=== PATIENT | male | born 1960 | race Caucasian/White ===

== ENCOUNTER 2017-05-26 05:17 | Observation (INO) | payer BC ==
[2017-05-26] MEDS ORDERED: ROPIVACAINE 0.5 % 30 ML VIAL (06:42)
[2017-05-26] MEDS: ROPIVACAINE 0.5 % 30 ML VIAL (06:45)
[2017-05-26] MEDS: POLYMYXIN/BACITRACIN 1L IRRIG (06:45)
[2017-05-26] MEDS ORDERED: SUCCINYLCHOLINE CHLORIDE 100 MG/5 ML SYG IV (06:58)
[2017-05-26] MEDS ORDERED: MIDAZOLAM 1 MG/ML 2 ML INJ ×2 (06:58→07:05)
[2017-05-26] MEDS ORDERED: LIDOCAINE 2% (SDV) 5 ML INJ (06:58)
[2017-05-26] MEDS ORDERED: ROCURONIUM 50 MG INJ ×3 (06:58→09:53)
[2017-05-26] MEDS ORDERED: PROPOFOL 20 ML (06:58)
[2017-05-26] MEDS ORDERED: ONDANSETRON 4 MG INJ (07:32)
[2017-05-26] MEDS ORDERED: METOCLOPRAMIDE 10 MG INJ (07:32)
[2017-05-26] MEDS ORDERED: DEXAMETHASONE 4 MG/ML 1 ML INJ (07:32)
[2017-05-26] MEDS ORDERED: FAMOTIDINE 20 MG INJ (07:32)
[2017-05-26] MEDS ORDERED: CEFAZOLIN 1 GM INJ ×2 (07:35→10:48)
[2017-05-26] MEDS ORDERED: HYDROmorphONE 2 MG/ML SYG (10:15)
[2017-05-26] MEDS ORDERED: hydrALAzine 20 MG INJ (10:18)
[2017-05-26] MEDS: POVIDONE IODINE 10% 28.4 GM OINT (10:20)
[2017-05-26] MEDS ORDERED: SUGAMMADEX SODIUM 200 MG/2 ML VIAL IV (11:30)
[2017-05-26] MEDS ORDERED: HYDROmorphONE 0.2 MG/ML PCA (12:26)
[2017-05-26] MEDS ORDERED: FENTAnyl 50 MCG/ML VIAL IV ×3 (12:30)
[2017-05-26] MEDS ORDERED: MEPERIDINE 25 MG INJ IV (12:30)
[2017-05-26] MEDS ORDERED: HYDROmorphONE (0.2 MG/ML) 10ML SYG IV ×3 (12:30)
[2017-05-26] MEDS ORDERED: PROCHLORPERAZINE 10 MG INJ IV (12:30)
[2017-05-26] MEDS ORDERED: DIPHENHYDRAMINE 50 MG INJ IV (12:30)
[2017-05-26] MEDS ORDERED: CEFAZOLIN 1 GM INJ IV (12:30)
[2017-05-26] MEDS ORDERED: ONDANSETRON 4 MG INJ IV (12:30)
[2017-05-26] MEDS ORDERED: BISACODYL 10 MG SUPP PR (12:30)
[2017-05-26] MEDS: HYDROmorphONE 0.2 MG/ML PCA IV (12:35)
[2017-05-26] MEDS: SOD CHLORIDE 0.9% 1,000 ML IV ×2 (14:22→21:25)
[2017-05-26] MEDS: ONDANSETRON 4 MG INJ IV ×2 (14:59→17:53)
[2017-05-26] MEDS: CEFAZOLIN 2 GM/50 ML (PMX) 50 ML IVPB (17:39)
[2017-05-26] MEDS: SENNA/DOCUSATE NA (8.6MG/50MG) TAB PO (21:00)
[2017-05-27] MEDS: CEFAZOLIN 2 GM/50 ML (PMX) 50 ML IVPB ×3 (00:47→17:26)
[2017-05-27] MEDS: HYDROmorphONE 0.2 MG/ML PCA IV ×2 (00:49→14:44)
[2017-05-27] MEDS: DIPHENHYDRAMINE 25 MG CAP PO ×2 (06:03→09:57)
[2017-05-27] MEDS: SOD CHLORIDE 0.9% 1,000 ML IV ×2 (08:34→18:14)
[2017-05-27] MEDS: OXYCODONE/ACETAMINOPHEN (5/325) TAB PO ×4 (08:59→22:20)
[2017-05-27] MEDS: SENNA/DOCUSATE NA (8.6MG/50MG) TAB PO ×2 (09:00→22:19)
[2017-05-27] MEDS: morphine 10 MG INJ IV (11:14)
[2017-05-27] MEDS: RIVAROXABAN 10 MG TABLET PO (17:01)
[2017-05-28] MEDS: CEFAZOLIN 2 GM/50 ML (PMX) 50 ML IVPB ×2 (01:58→10:00)
[2017-05-28] MEDS: OXYCODONE/ACETAMINOPHEN (5/325) TAB PO ×4 (01:58→14:45)
[2017-05-28] MEDS: SOD CHLORIDE 0.9% 1,000 ML IV ×2 (04:14→13:57)
[2017-05-28] MEDS: DIPHENHYDRAMINE 25 MG CAP PO ×2 (05:59→11:01)
[2017-05-28] MEDS: HYDROmorphONE 0.2 MG/ML PCA IV (06:02)
[2017-05-28] MEDS: SENNA/DOCUSATE NA (8.6MG/50MG) TAB PO (08:24)
[2017-05-28] MEDS ORDERED: DIPHENHYDRAMINE 25 MG CAP PO (12:30)
[2017-05-28] MEDS ORDERED: MAGNESIUM HYDROXIDE 30ML CUP PO (21:00)
== END 2017-05-28 15:40 | disposition home or self-care (01) ==
LOC: SDS 05:17 → REC 12:17 → MS1 13:15
DX: M19.071 Primary osteoarthritis, right ankle and foot (principal); M25.771 Osteophyte, right ankle; M85.671 Other cyst of bone, right ankle and foot; M65.9 Synovitis and tenosynovitis, unspecified; K21.9 Gastro-esophageal reflux disease without esophagitis; E78.5 Hyperlipidemia, unspecified; I10 Essential (primary) hypertension; G47.33 Obstructive sleep apnea (adult) (pediatric); Z88.8 Allergy status to other drugs, medicaments and biological substances
CPT/HCPCS: 29898; 73600; 97116; 97162; 97530

== ENCOUNTER → 2018-08-05 | Outpatient (CLI) | payer BC | END | disposition home or self-care (01) | LOC: HKI 15:43 | DX: Z47.1 Aftercare following joint replacement surgery (principal); Z96.652 Presence of left artificial knee joint | CPT/HCPCS: 73562; 73562-50 ==